=== PATIENT | female | born 1950 | race Caucasian/White ===

== ENCOUNTER 2019-02-03 10:41 | Emergency (ER) | payer OTHER ==
[~2019-02-03] VITALS: Ht 157.5 cm; Wt 54.0 kg
== END 2019-02-03 11:45 | disposition home or self-care (01) ==
LOC: ER 10:41
DX: I16.1 Hypertensive emergency (principal); I10 Essential (primary) hypertension

== ENCOUNTER 2019-08-23 14:25 | Emergency (ER) | payer OTHER ==
[~2019-08-23] VITALS: Ht 157.5 cm; Wt 54.4 kg
[2019-08-23] MEDS ORDERED: COZAAR100 MG (14:49)
[2019-08-23] MEDS ORDERED: CIPRO500 MG PO (15:36)
[2019-08-23] MEDS ORDERED: MAXITROL EYE DRO5 ML OP (15:36)
== END 2019-08-23 15:42 | disposition home or self-care (01) ==
LOC: ER 14:25
DX: H00.013 Hordeolum externum right eye, unspecified eyelid (principal)

== ENCOUNTER 2019-11-20 07:33 | Outpatient (CLI) | payer OTHER | END 2019-11-20 07:52 | disposition home or self-care (01) | LOC: NUCLEAR 07:33 | PROVIDERS: ATTEND Internal Medicine Cardiovascular Disease | DX: R07.89 Other chest pain (principal) ==

== ENCOUNTER → 2019-11-20 | Outpatient (CLI) | payer OTHER ==
[~2019-11-20] MED LIST: CIPRO500 MG PO; COZAAR100 MG; MAXITROL EYE DRO5 ML OP
== END | disposition home or self-care (01) ==
LOC: TOM 09:17
PROVIDERS: ATTEND Internal Medicine Cardiovascular Disease
DX: M12.88 Other specific arthropathies, not elsewhere classified, other specified site (principal); I10 Essential (primary) hypertension; R51 Headache; M46.47 Discitis, unspecified, lumbosacral region
CPT/HCPCS: 70470; 72040; Q9965

== ENCOUNTER 2019-11-25 08:33 | Outpatient (CLI) | payer OTHER | END 2019-11-25 08:48 | disposition home or self-care (01) | LOC: TOM 08:33 | PROVIDERS: ATTEND Otolaryngology Otology & Neurotology | DX: J30.89 Other allergic rhinitis (principal) ==

== ENCOUNTER 2019-12-01 13:01 | Outpatient (CLI) | payer OTHER | END 2019-12-01 13:16 | disposition home or self-care (01) | LOC: RAD 13:01 | PROVIDERS: ATTEND Physical Medicine & Rehabilitation | DX: M54.5 Low back pain (principal); M54.6 Pain in thoracic spine ==